=== PATIENT | female | born 1960 | race Caucasian/White ===

== ENCOUNTER 2020-09-16 08:32 | Emergency (ER) | payer BC ==
[~2020-09-16] VITALS: Ht 167.6 cm; Wt 99.8 kg
[2020-09-16] MEDS ORDERED: LIPITOR10 MG PO (08:46)
[2020-09-16] MEDS ORDERED: AMITRIPTYLINE H10 M1 PO (08:46)
[2020-09-16] MEDS ORDERED: METFORMIN HCL500 MG PO (08:46)
[2020-09-16] MEDS ORDERED: SERTRALINE HCL100 MG PO (08:46)
[2020-09-16] MEDS ORDERED: ZESTRIL40 MG PO (08:46)
[2020-09-16 09:20] LABS: ABSOLUTE NEUTROPHILS 4.6 thou/uL (1.4-8.2); BASOPHILS 0.9 % (0.0-2.0); HEMOGLOBIN 15.1 gm/dL (12.0-15.0); LYMPHOCYTES 19.3 % (24.0-44.0); MCH 29.7 pg (26.0-34.0); MCHC 33.5 g/dL (28.0-37.0); MCV 88.7 fL (80.0-100.0); MONOCYTES 5.3 % (1.0-8.0); PLATELET COUNT 143 thou/uL (150-400); POLYS 73.5 % (36.0-66.0); RBC 5.07 mil/uL (4.20-5.00); RDW 14.1 % (10.5-14.5); WBC 6.2 thou/uL (4.0-11.0)
[2020-09-16 09:35] LABS: ANION GAP 11 mmol/L (7-16); BUN 13 mg/dL (7-18); CALCIUM 9.4 mg/dL (8.5-10.1); CHLORIDE 100 mmol/L (98-107); CO2 26 mmol/L (21-32); CREATININE 0.9 mg/dL (0.6-1.0); GLUCOSE 391 mg/dL (74-106); POTASSIUM 3.9 mmol/L (3.5-5.1); SODIUM 137 mmol/L (136-145)
[2020-09-16 09:40] LABS: URINE BILIRUBIN NEGATIVE (Negative); URINE BLOOD TRACE (Negative); URINE CLARITY CLEAR; URINE COLOR YELLOW; URINE GLUCOSE-RANDOM* 3+ (Negative); URINE KETONES NEGATIVE (Negative); URINE NITRITE-REFLEX NEGATIVE (Negative); URINE PROTEIN (DIPSTICK) NEGATIVE (Negative); URINE UROBILINOGEN 0.2 E.U./dl (0.2-1.0)
[2020-09-16 09:41] LABS: URINE LEUKOCYTES-REFLEX 1+ (Negative)
[2020-09-16 09:46] LABS: ALBUMIN 3.6 g/dL (3.4-5.0); MAGNESIUM 1.9 mg/dL (1.8-2.4); SGOT 98 U/L (15-37); SGPT 112 U/L (30-65); TOTAL BILIRUBIN 0.7 mg/dL (0.2-1.0); TROPONIN-I <0.06 ng/mL (<0.06)
[2020-09-16 09:55] LABS: CASTS None Seen /LPF (None Seen); CRYSTALS None Seen /LPF (None Seen); SQUAMOUS 0-3 Few /LPF (0-3)
[2020-09-16 09:56] LABS: BACTERIA-REFLEX 1-9 Few /HPF (None Seen); URINE RBC 0-2 Rare /HPF (0-2); URINE WBC-REFLEX 0-5 Rare /HPF (0-5)
[2020-09-16 10:39] VITALS: BP 117/72
--- NOTE | 2020-09-17 15:10 | EKG ---
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 09/17/20 1510 0915 0915 Kevin Merida MD, FACC /EPI
== END 2020-09-16 10:41 | disposition home or self-care (01) ==
LOC: ER 08:32
PROVIDERS: Emergency Medicine
DX: R42 Dizziness and giddiness (principal); E11.65 Type 2 diabetes mellitus with hyperglycemia; R79.89 Other specified abnormal findings of blood chemistry; I10 Essential (primary) hypertension; E78.5 Hyperlipidemia, unspecified; Z79.899 Other long term (current) drug therapy

== ENCOUNTER 2020-09-29 14:53 | Emergency (ER) | payer BC ==
[~2020-09-29] VITALS: Ht 167.6 cm; Wt 99.8 kg
[~2020-09-29 14:53] MED LIST: AMITRIPTYLINE H10 M1 PO; LIPITOR10 MG PO; METFORMIN HCL500 MG PO; SERTRALINE HCL100 MG PO; ZESTRIL40 MG PO
[2020-09-29] MEDS ORDERED: VISTARIL 25 MG25 M1 PO (15:04)
[2020-09-29] MEDS ORDERED: CYCLOBENZAPRINE10 MG PO (15:04)
[2020-09-29] MEDS ORDERED: GLIMEPIRIDE1 MG PO (15:04)
[2020-09-29 15:15] LABS: URINE BILIRUBIN NEGATIVE (Negative); URINE BLOOD NEGATIVE (Negative); URINE CLARITY CLEAR; URINE COLOR YELLOW; URINE GLUCOSE-RANDOM* 3+ (Negative); URINE KETONES NEGATIVE (Negative); URINE NITRITE-REFLEX NEGATIVE (Negative); URINE PROTEIN (DIPSTICK) NEGATIVE (Negative); URINE SPECIFIC GRAVITY 1.025 (1.005-1.035)
[2020-09-29 15:16] LABS: URINE LEUKOCYTES-REFLEX 1+ (Negative)
[2020-09-29 15:43] LABS: BACTERIA-REFLEX 1-9 Few /HPF (None Seen); CASTS None Seen /LPF (None Seen); CRYSTALS None Seen /LPF (None Seen); SQUAMOUS 0-3 Few /LPF (0-3); URINE RBC 0-2 Rare /HPF (0-2); URINE WBC-REFLEX 0-5 Rare /HPF (0-5)
[2020-09-29 16:17] LABS: ABSOLUTE NEUTROPHILS 4.3 thou/uL (1.4-8.2); EOSINOPHILS 1.1 % (0.0-3.0); HEMATOCRIT 43.3 % (37.0-47.0); HEMOGLOBIN 14.7 gm/dL (12.0-15.0); LYMPHOCYTES 23.2 % (24.0-44.0); MCH 30.1 pg (26.0-34.0); MCV 88.4 fL (80.0-100.0); MONOCYTES 7.2 % (1.0-8.0); PLATELET COUNT 152 thou/uL (150-400); POLYS 67.5 % (36.0-66.0); RDW 14.3 % (10.5-14.5); WBC 6.3 thou/uL (4.0-11.0)
[2020-09-29 16:26] LABS: CALCIUM 9.2 mg/dL (8.5-10.1); CREATININE 0.9 mg/dL (0.6-1.0); POTASSIUM 4.2 mmol/L (3.5-5.1)
[2020-09-29] MEDS ORDERED: NAPROSYN500 MG PO (19:44)
[2020-09-29 20:02] VITALS: BP 137/77
== END 2020-09-29 20:02 | disposition home or self-care (01) ==
LOC: ER 14:53
PROVIDERS: Emergency Medicine
DX: R10.9 Unspecified abdominal pain (principal); I10 Essential (primary) hypertension; E11.9 Type 2 diabetes mellitus without complications; E78.5 Hyperlipidemia, unspecified; Z86.73 Personal history of transient ischemic attack (TIA), and cerebral infarction without residual deficits; Z79.899 Other long term (current) drug therapy